=== PATIENT | female | born 1980 | race Caucasian/White ===

== ENCOUNTER 2024-06-11 16:08 | Emergency (ER) | payer OTHER, SELFPAY ==
[2024-06-11 16:16] VITALS: BP 130/71
--- NOTE | 2024-06-11 18:24 | ED.GENMED ---
History of Present Illness
General
Chief Complaint: Musculo-Skeletal Complaint
Source: patient
Exam Limitations: none
Time Seen by Provider: 06/11/24 17:58
History of Present Illness
History of Present Illness:
This is a 44 year old female that comes in with c/o right sided neck pain. States that yesterday she awoke with right sided neck pain like she slept wrong. States that today the pain is worse and has continued to get worse all day. State that it is
the right lateral neck that goes down into her shoulders. States that she took Flexeril 5mg at 12:30pm and Advil at 11:45am and nothing is helping her pain. States that there has not been any fall or injury. Denies any fever, chills, chest pain,
SOB, abd pain, nausea, vomiting, diarrhea, headache, dizziness, urianry burning.
Past History
Past History
ED Past Medical History: None; Negative Asthma, HTN, Hypercholesterolemia or NIDDM
ED Past Surgical History:
Social History
Tobacco: Non-smoker
Alcohol: Occasional
Personal: Single
Living: with family
Review of Systems
Review of Systems
All Other Systems: ROS reviewed and negative except as documented in HPI and ROS
Constitutional: Reports no symptoms; Denies fever or chills
EENT: Reports no symptoms
Respiratory: Reports no symptoms; Denies cough or trouble breathing
Cardiac: Reports no symptoms; Denies chest pain
ABD/GI: Denies abdominal pain, nausea, vomiting or diarrhea
: Reports no symptoms; Denies dysuria, frequency or urgency
Musculoskeletal: Reports neck pain
Skin: Reports no symptoms
Neurological: Reports no symptoms; Denies dizzy or headache
Psychiatric: Reports no symptoms
Phy Exam
General Physical Exam
General Presentation: mild distress
General age: appears stated age
General Skin: warm and dry
General Habitus: normal
General Mental: alert
General Hydration: appears well hydrated
ENT Exam
ENT Exam: TM's normal and pharynx normal
Eye Exam
Eye Exam: EOMI
Cardiovascular Exam
Cardiovascular Exam: regular rate/rhythm, no edema, no murmur and normal peripheral pulses
Pulmonary Exam
Pulmonary Exam: lungs clear, no respiratory distress, no rales, chest non tender, no crackles, no rhonchi, no wheezing and no cough
Musculoskeletal Exam
Musculoskeletal Exam: other (Can turn her head to the left but unable to turn to the right. )
Skin Exam
Skin Exam: normal color, warm/dry, no rash and no petechia
Psychiatric Exam
Psychiatric Exam: normal mood/affect
Course
Orders/Labs/Results
Orders:
Orders
06/11/24 18:22
CT Head & Neck Angio W/wo IV Urgent
Comment:
Reason For Exam: Right sided neck pain, Pain with attempting turnin
Acetaminophen [Tylenol] 1,000 mg PO NOW STA
Ketorolac [Toradol] 30 mg IV NOW STA
diazePAM [Valium Injection] 2 mg IV NOW STA
06/11/24 18:29
Test Result ONCE
06/11/24 18:42
Complete Blood Count/With Diff Urgent
Comprehensive Metabolic Panel Urgent
HCG, Serum Qualitative Screen Urgent
Abnormal Lab Results
06/11/24
18:42
Absolute Neuts (auto) 6.7 H 10^3/uL
(1.4-6.5)
ALT 54 H U/L
(0-35)
06/11/24 18:42
06/11/24 18:42
ALT slightly elevaated. COVID and Influenza negative.
Vital Signs
Initial and Last Documented VS:
Initial Vital Signs
Temp Pulse Resp BP Pulse Ox
97.9 F 74 20 130/71 100
06/11/24 16:16 06/11/24 16:16 06/11/24 16:16 06/11/24 16:16 06/11/24 16:16
Last Documented Vital Signs
Temp Pulse Resp BP Pulse Ox
97.9 F 62 18 108/68 100
06/11/24 16:16 06/11/24 21:15 06/11/24 21:15 06/11/24 21:15 06/11/24 21:15
MDM/Problems Addressed
Differential Diagnosis Includes:
Stiff neck. Herniated disc
MDM/Problems Addressed:
This is a 44 year old female that comes in with c/o right sided neck pain lateral posterior that goes into her shoulder.
Will check labs and medicate for pain. Will get CTA head and neck.
Back into see patient. Explained that the CTA of head and neck is normal. This is most likely a stiff neck. Patient can use Tylenol and Ibuprofen for pain. Heat or ice which ever makes you feels better. You have Flexeril at home that you can also
use at Bedtime to help relax the muscle. Follow up with the family doctor as needed. IF YOU HAVE ANY OTHER CONCERNS PLEASE RETURN TO THE EMERGENCY ROOM.
Chronic conditions affecting care:
NA
Acute Exacerbation and/or Progression of Chronic Illness:
NA
*Radiology
Radiology exam reviewed: radiology read reviewed (CTA head and neck- NO acute intracranial hemorrhage. The cervical corotid and vertebral arteries area patient without significant plaque, stenosis, occlusion, or dissection. NO [place]
region aneurysm or stenosis. NO cerebral artery significant plaque, stenosis , thrombus or occlusion.) and other (CT cont- Mild degenerative disc disease at C6-7. No significant facet arthrosis. No significant osseous central canal or foraminal
stenosis. )
*Pulse Oximetry
Patient hypoxic: no
*EKG
Interpreted by ED Provider?: NA
Rate: EKG- N/A
*Senior Director Interpretation
Rate: Senior Director- N/A
*Critical Care Note
Total Time (30-74mins, 75-104mins- exclusive of procedures): Not Applicable
ED Attending Note
-
Portions of this chart may have been created with voice recognition software.� Occasional wrong word or��sound alike� substitutions may have occurred due to the inherent limitations of voice recognition software.
Discharge Plan
Departure
Patient Disposition: Home (Routine Discharge)
Date of Disposition: 06/11/24
Time of Disposition: 21:40
Patient with high blood pressure during this ER visit?: No
Condition: Good
Covid-19: Not Applicable
Discharge Problem:
Acute neck pain
Instructions: Neck pain - ED discharge instructions
Referrals:
NONE,* [Family Provider] -
Activity Restrictions/Additional Instructions:
As discussed, your CT of the head and neck shows that everything is normal. This is most likely a stiff neck. You may use heat or ice to the neck which ever makes you feel better. You may use Tylenol 1000mg every 6 hours for pain and alternate with
Ibuprofen 600mg every 6 hours with food. So if you take Tylenol at 9am, the Ibuprofen can be take at 12 noon and then Tylenol at 3pm and Ibuprofen at 6pm. You may also use the Flexeril that you have at home at night to sleep as this will help relax
the muscles. This will just take time. Follow up with the family doctor as needed. IF YOU HAVE ANY OTHER CONCERNS PLEASE RETURN TO THE EMERGENCY ROOM.
Interventions
Interventions:
*Risk Screen - Suicide Last Done: 06/11/24 16:16
ED-Musculoskeletal Assessment Last Done: 06/11/24 19:24
Discharge Date and Time
Print Language: AZERI
[2024-06-11] MEDS: VALIUM INJECTION 2 MG IV (18:35)
[2024-06-11] MEDS: TYLENOL 1000 MG PO (18:36)
[2024-06-11] MEDS: TORADOL 30 MG IV (18:36)
[2024-06-11 18:51] LABS: % Basophils 0.4 % (0-2); % Eosinophils 1.3 % (0-6); % Immature Granulocytes 0.4 % (0-0.5); % Lymphocytes 22.2 % (20.5-51.1); % Neutrophils 71.7 % (42.2-75.2); Absolute Eosinophils 0.1 10^3/uL (0-0.7); Absolute Lymphocytes 2.1 10^3/uL (1.2-3.4); Absolute Monocytes 0.4 10^3/uL (0.1-0.6); Absolute Neutrophils 6.7 10^3/uL (1.4-6.5); Hematocrit 39.8 % (37.0-47.0); Hemoglobin 13.4 g/dL (12.0-16.0); Mean Corp Hgb Conc. 33.7 g/dL (33.0-37.0); Mean Corpuscular Hgb 30.7 pg (27.0-31.0); Mean Corpuscular Volume 91.1 fL (81.0-99.0); Mean Platelet Volume 9.3 fL (7.4-10.4); Nucleated Red Blood Cells % 0 %; Platelet Count 294 10^3/uL (130-400); Red Blood Cell Count 4.37 10^6/uL (4.20-5.40); Red Cell Dist. Width 11.9 % (11.5-14.5); White Blood Cell Count 9.3 10^3/uL (4.8-10.8)
[2024-06-11 19:01] LABS: HCG, Serum Qualitative Screen Negative
[2024-06-11 19:05] LABS: ALT (SGPT) 54 U/L (0-35); AST (SGOT) 34 U/L (14-36); Albumin 4.9 g/dl (3.5-5.0); Alkaline Phosphatase 67 U/L (38-126); Blood Urea Nitrogen 12 mg/dl (7-17); Calcium 9.6 mg/dl (8.4-10.2); Carbon Dioxide 26 mmol/L (22-30); Chloride 103 mmol/L (98-107); Glucose 93 mg/dl (70-99); Potassium 4.4 mmol/L (3.5-5.1); Sodium 138 mmol/L (135-145); Total Bilirubin 0.5 mg/dl (0.2-1.3); Total Protein 7.9 g/dl (6.3-8.2); eGFR > 60.00
[2024-06-11 19:24] VITALS: BMI 31.1
[2024-06-11 21:15] VITALS: BP 108/68
== END 2024-06-11 22:16 | disposition home or self-care (01) ==
LOC: EMR 16:08
PROVIDERS: Clinical Nurse Specialist Family Health; EMERGENCY PHYSICIAN Student in an Organized Health Care Education/Training Program
DX: M54.2 Cervicalgia (principal)
CPT/HCPCS: 99284; 96374; 96375; 70496; 70498; 80053; 84703; 85025; Q9967